=== PATIENT | male | born 1950 | race Caucasian/White ===

== ENCOUNTER 2018-10-21 17:17 | Emergency (ER) | payer OTHER ==
[~2018-10-21] VITALS: Ht 172.7 cm; Wt 90.0 kg
[2018-10-21 17:17] VITALS: Ht 172.7 cm; Wt 90.0 kg
[2018-10-21] MEDS ORDERED: SODIUM CHLORIDE 0.9% 1L BAG IV* STA (17:35)
[2018-10-21] MEDS ORDERED: PROPOFOL 100 ML IV ONE (18:00)
--- NOTE | 2018-10-21 19:47 | ERD ---
ER Documentation Chief Complaint Chief Complaint cardiac arrest HPI Approximately 55-year-old unidentified male brought in by ambulance from [employer] [facility] after he had a witnessed cardiac arrest. There was bystander CPR. There was a unit that was doing CPR on the patient prior to the current unit arriving. They gave the patient epinephrine and 300 mg amiodarone. Patient had V. fib in the field. He was defibrillated with return of spontaneous circulation. However the patient lost pulses prior to arrival. Upon patient's arrival, CPR was in progress. Patient has no identifying information on him. He does have a bottle of nitroglycerin on his person. The ambulance arrived at the scene at 16:55 ROS Unable to obtain due to clinical condition Medications Home Meds Unable to Obtain Active Prescriptions or Reported Meds Allergies Allergies: Coded Allergies: Unknown: Unable to obtain (Unverified , 10/21/18) PMhx/Soc Medical and Surgical Hx: Unable to obtain Hx Alcohol Use: No (unable to obtain) Smoking Status: Unknown if ever smoked FmHx Unable to obtain Physical Exam Vitals Vital Signs Date Temp Pulse Resp B/P (MAP) Pulse Ox O2 O2 Flow FiO2 Time Delivery Rate 10/21/18 Bag Valve 18:31 Mask 10/21/18 100 100 17:20 10/21/18 0 0 0/0 (0) 0 17:17 Physical Exam VITAL SIGNS: GENERAL: Patient is lying on gurney and is unresponsive. Obese HEAD: Head is normocephalic. No evidence of trauma. No scalp or facial swelling EYES: Pupils are nonreactive. ENT: Anthony airway in place. Oropharynx and nasopharynx with clear mucus NECK: Supple. No masses RESPIRATORY: Breath sounds equal bilaterally with bagging CV: No heart sounds heard. No palpable carotid or femoral pulses ABDOMEN: Soft, non-distended. No masses EXTREMITIES: No deformity. No edema. No fistulas SKIN: No jaundice. No diaphoresis NEUROLOGIC: Not alert. Unresponsive to external stimuli Results 24 hrs Current Medications Medications Dose Sig/João Start Time Status Last (Trade) Ordered Route PRN Stop Time Admin Dose Reason Admin Sodium 2,700 ml BOLUS OVER 2 10/21/18 DC Chloride HOURS STAT 17:35 (NS) IV* 10/21/18 17:41 Propofol 100 ml @ per protocol 10/21/18 2.7 mls/hr ONCE IV 18:00 10/23/18 07:02 Procedures/MDM EMERGENT LABS AND DIAGNOSTIC STUDIES: 12-lead EKG was interpreted by Vj Morelos MD: Paced rhythm at 84 bpm with left bundle branch block morphology no obvious ST elevations No acute ST or T wave changes suggestive of acute ischemia or STEMI. Initial Nursing notes reviewed. Previous Medical Records requested via the Electronic Health Record. EMERGENCY DEPARTMENT COURSE / MEDICAL DECISION MAKING: Cardiopulmonary Resuscitation by me: Patient presented with cardiac arrest. See code documentation for specific details. ACLS and BLS were performed with high quality chest compressions and minimal interruptions. Reversible causes were assessed and treated. Patient did regain pulses for a few minutes then had another cardiac arrest while here. I did speak with the bull bucker on-call, Dr. Duron, who reviewed the EKG. However he said that since the patient is unstable and we have no history o and no further information, he would likely be unable to take this patient to the [facility]. Despite our best efforts, patient never regained pulses and time of was called at 17:53. Critical Care Time: 35 minutes Treatments/Evaluations: Close monitoring and treatment of unstable vital signs, cardiorespiratory, and neurologic status, while maintaining tight balance of fluid, respiratory, and cardiac interventions. This time includes discussing the case with the patient and the patients family. This time does not include all procedures stated elsewhere in this record. This time also includes reviewing old records, labs and radiological studies. This time includes examining and re- examining the patient. Additionally, this time also includes arranging care with admitting and consulting physicians. Departure Diagnosis: Primary Impression: Cardiac arrest Condition: Critical () LAURA MORELOS MD October 21, 2018 19:47
[2018-10-21] MEDS ORDERED: EPINEPHrine 10 MCG/1ml (10 ML SYG) IV ONE (21:00)
== END 2018-10-22 01:37 | disposition expired ==
LOC: EDBD 17:17 → E/R 17:17
DX: I46.9 Cardiac arrest, cause unspecified (principal)
CPT/HCPCS: 31500; 36415; 92950; 93005; 94002; 99291; J0171; J7030